=== PATIENT | female | born 1995 | race Caucasian/White ===

== ENCOUNTER 2019-06-21 19:03 | Outpatient (CLI) | payer OTHER ==
[~2019-06-21] VITALS: Ht 152.4 cm; Wt 60.0 kg
[~2019-06-21 19:03] MED LIST: None per pt.
[2019-06-21 19:31] VITALS: BP 116/78
== END 2019-06-21 21:25 | disposition home or self-care (01) ==
LOC: LDOP 19:03
PROVIDERS: ATTEND Obstetrics & Gynecology
DX: O26.893 Other specified pregnancy related conditions, third trimester (principal); R10.9 Unspecified abdominal pain; Z3A.39 39 weeks gestation of pregnancy
CPT/HCPCS: 59025; 99211; G0463

== ENCOUNTER 2019-06-27 17:32 | Inpatient (IN) | payer OTHER ==
[~2019-06-27] VITALS: Ht 152.4 cm; Wt 61.3 kg
[2019-06-30] MEDS ORDERED: OXYTOCIN 30U/ 0.9% NaCL 500ML 500 ML IV ONE (20:09)
[2019-06-30] MEDS ORDERED: TERBUTALINE 1 MG/ML, 1ML IVPush PRN (20:30)
[2019-06-30] MEDS ORDERED: MISOPROSTOL 25 MCG TABLET VG PRN (20:30)
[2019-06-30] MEDS ORDERED: PLEASE ENTER HEIGHT AND WEIGHT MC SCH (20:30)
[2019-06-30] MEDS ORDERED: FENTANYL PF 100 MCG/2ML IV PRN (20:30)
[2019-06-30] MEDS ORDERED: TERBUTALINE 1 MG/ML, 1ML SQ PRN (20:30)
[2019-06-30] MEDS ORDERED: ONDANSETRON 2MG/ML, 2ML IVPush PRN (20:30)
[2019-06-30 20:41] LABS: BASOPHILS # (AUTO) 0.02 x10^3/uL (0-0.1); BASOPHILS % (AUTO) 0 % (0-1); EOSINOPHILS # (AUTO) 0.01 x10^3/uL (0-0.4); EOSINOPHILS % (AUTO) 0 % (1-7); LYMPHOCYTES # (AUTO) 2.11 x10^3/uL (1-3.4); LYMPHOCYTES % (AUTO) 34 % (22-44); MD NO; MEAN CORPUSCULAR HEMOGLOBIN 30.8 pg (27.0-34.8); MEAN CORPUSCULAR VOLUME 90.7 fL (80-100); MEAN PLATELET VOLUME 12.3 fL (7.4-10.4); MONOCYTES # (AUTO) 0.39 x10^3/uL (0.2-0.8); MONOCYTES % (AUTO) 6 % (2-9); NEUTROPHILS # (AUTO) 3.75 x10^3/uL (1.8-6.8); NEUTROPHILS % (AUTO) 60 % (42-75); PLATELET COUNT 128 x10^3/uL (130-400); RED BLOOD COUNT 4.06 x10^6/uL (3.82-5.3); RED CELL DISTRIBUTION WIDTH 13.6 % (9.6-15.2)
[2019-06-30] MEDS ORDERED: PREN1TAB60 PO (21:24)
[2019-06-30] MEDS ORDERED: MISOPROSTOL 25 MCG TABLET ONE (21:37)
[2019-06-30] MEDS ORDERED: NEWBORN KIT ONE (22:43)
[2019-06-30] MEDS ORDERED: OXYTOCIN 30U/ 0.9% NaCL 500ML 500 ML ONE (22:44)
[2019-06-30] MEDS ORDERED: MISOPROSTOL 200 MCG TABLET ONE (22:44)
[2019-06-30] MEDS ORDERED: LIDOCAINE 1%, 20ML ONE (22:44)
[2019-06-30] MEDS ORDERED: CALCIUM CARBONATE 500 MG TAB.CHEW ONE (23:15)
[2019-06-30] MEDS ORDERED: CALCIUM CARBONATE 500 MG TAB.CHEW PO PRN (23:30)
[2019-07-01] MEDS ORDERED: FENTANYL PF 100 MCG/2ML ONE ×2 (06:01→07:05)
[2019-07-01] MEDS: FENTANYL PF 100 MCG/2ML IVPush PRN ×2 (06:07→07:14)
[2019-07-01] MEDS ORDERED: OXYTOCIN 30U/ 0.9% NaCL 500ML 500 ML ONE (08:58)
[2019-07-01] MEDS ORDERED: IBUPROFEN 600 MG TABLET ONE (09:21)
[2019-07-01] MEDS: IBUPROFEN 600 MG TABLET PO PRN ×3 (09:28→22:19)
[2019-07-01] MEDS: OXYTOCIN 30U/ 0.9% NaCL 500ML 500 ML IV SCH ×2 (09:28→19:17)
[2019-07-01] MEDS ORDERED: SIMETHICONE 80 MG CHEW TAB PO PRN (09:30)
[2019-07-01] MEDS ORDERED: MISOPROSTOL 200 MCG TABLET PR PRN (09:30)
[2019-07-01] MEDS ORDERED: OXYcodone/APAP 5/325MG TABLET PO PRN ×2 (09:30)
[2019-07-01] MEDS: LACTATED RINGERS 1,000 ML IV SCH ×2 (09:35→18:00)
[2019-07-01 11:00] VITALS: BP 109/70
[2019-07-01] MEDS ORDERED: FLU VACC QS2019-20 36MOS UP/PF 0.5 ML IM-VACC ONE (12:00)
[2019-07-01 15:08] VITALS: BP 127/81
[2019-07-01 16:35] LABS: BASOPHILS # (AUTO) 0.04 x10^3/uL (0-0.1); BASOPHILS % (AUTO) 0 % (0-1); EOSINOPHILS # (AUTO) 0.11 x10^3/uL (0-0.4); EOSINOPHILS % (AUTO) 1 % (1-7); LYMPHOCYTES % (AUTO) 13 % (22-44); MD NO; MEAN CORPUSCULAR HEMOGLOBIN 30.4 pg (27.0-34.8); MEAN CORPUSCULAR HGB CONC 33.3 g/dL (32.4-35.8); MEAN CORPUSCULAR VOLUME 91.1 fL (80-100); MEAN PLATELET VOLUME 12.6 fL (7.4-10.4); MONOCYTES # (AUTO) 0.62 x10^3/uL (0.2-0.8); MONOCYTES % (AUTO) 5 % (2-9); NEUTROPHILS % (AUTO) 81 % (42-75); PLATELET COUNT 126 x10^3/uL (130-400); RED BLOOD COUNT 3.96 x10^6/uL (3.82-5.3); RED CELL DISTRIBUTION WIDTH 14.2 % (9.6-15.2)
[2019-07-01 20:35] VITALS: BP 113/71
[2019-07-01] MEDS: DOCUSATE 100 MG CAPSULE PO PRN (22:19)
[2019-07-02 00:20] VITALS: BP 96/61
[2019-07-02] MEDS: LACTATED RINGERS 1,000 ML IV SCH ×2 (02:00→10:00)
[2019-07-02 04:00] VITALS: BP 120/79
[2019-07-02] MEDS: OXYTOCIN 30U/ 0.9% NaCL 500ML 500 ML IV SCH (05:17)
[2019-07-02 08:40] VITALS: BP 111/62
[2019-07-02] MEDS: DOCUSATE 100 MG CAPSULE PO PRN (08:51)
[2019-07-02] MEDS ORDERED: DIPH,PERTUSS(ACELL),TET VAC/PF NC IM-VACC ONE (09:00)
[2019-07-02] MEDS ORDERED: PRENATAL VIT/IRON/FA 1 EACH TABLET PO SCH (09:00)
[2019-07-02] MEDS ORDERED: IBUP-1222 PO (12:19)
== END 2019-07-02 16:46 | disposition home or self-care (01) | DRG 807 ==
LOC: EDIP 06-30 20:17 → LDIP 06-30 20:26 → 2NW 07-01 10:52
PROVIDERS: ADMIT Obstetrics & Gynecology; ATTEND Obstetrics & Gynecology
PROC: 10E0XZZ Delivery of Products of Conception, External Approach (ICD-10-PCS; principal; 2019-07-01)
PROC: 0UQMXZZ Repair Vulva, External Approach (ICD-10-PCS; 2019-07-01)
DX: O48.0 Post-term pregnancy (principal); Z37.0 Single live birth; O71.82 Other specified trauma to perineum and vulva; Z3A.40 40 weeks gestation of pregnancy
CPT/HCPCS: 36415; 85025; 86592; 86850; 86900; 90686; 90715; G0378; J3010; J2590; J7120